=== PATIENT | male | born 1985 | race African-American/Black ===

== ENCOUNTER 2020-05-28 12:47 | Inpatient (IN) | payer MEDICAID, OTHER ==
[~2020-05-28] VITALS: Ht 182.9 cm; Wt 90.2 kg
[2020-05-28 13:59] LABS: BASOPHILS % (AUTO) 1 % (0-1); EOSINOPHILS % (AUTO) 0 % (1-7); LYMPHOCYTES % (AUTO) 5 % (22-44); MEAN CORPUSCULAR HEMOGLOBIN 26.2 pg (27.5-34.5); MEAN CORPUSCULAR HGB CONC 31.8 g/dL (33.2-36.2); MEAN PLATELET VOLUME 8.1 fL (7.4-10.4); MONOCYTES % (AUTO) 7 % (2-9); NEUTROPHILS % (AUTO) 87 % (42-75); PLATELET COUNT 579 x10^3/uL (130-400); RED BLOOD COUNT 6.69 x10^6/uL (4.38-5.82); RED CELL DISTRIBUTION WIDTH 12.7 % (9.4-14.8)
[2020-05-28 14:01] LABS: MD NO
[2020-05-28] MEDS ORDERED: SODIUM CHLORIDE 0.9% 1,000ML IVBOLUS ONE ×3 (14:30→16:00)
[2020-05-28] MEDS ORDERED: SODIUM CHLORIDE FLUSH 10ML SYR IVF ONE (14:30)
--- NOTE | 2020-05-28 14:36 | NUR ---
BREAK RN NOTE: REPORT TAKEN FROM PAULO DANG FOR MEAL BREAK, LAB PAGED REGARDING PENDING CMP.
--- NOTE | 2020-05-28 14:38 | NUR ---
RELATIONSHIP MANAGER STATES CMP IS RUNNING NOW AND TECH WILL BE SENT TO DRAW VENOUS BLOOD GAS.
--- NOTE | 2020-05-28 14:50 | NUR ---
MICAELA RICARDO AT BEDSIDE. FSBS TAKEN 446, EDMD RICARDO NOTIFIED. NS INFUSING RAPIDLY. PT IS DROWSY, RESPS EVEN AND UNLABORED, SINUS TACH ON MONITOR RATE 100'S WITH NO ECTOPY NOTED. ALL MONITORS IN PLACE. CALL LIGHT IN REACH. AWAITING LABS AND DISPO.
[2020-05-28 14:57] LABS: ALANINE AMINOTRANSFERASE 22 U/L (12-78); ALBUMIN 4.1 g/dL (3.4-5.0); ANION GAP 22 mmol/L (5-15); CALCIUM 9.9 mg/dL (8.5-10.1); CHLORIDE 92 mmol/L (98-107); CREATININE 2.19 mg/dL (0.7-1.3)
[2020-05-28 15:00] LABS: ACETONE, SERUM Large (80mg/dL) (Negative)
[2020-05-28 15:01] LABS: ALKALINE PHOSPHATASE 193 U/L (45-117); BILIRUBIN,TOTAL 0.5 mg/dL (0.2-1.0); TOTAL PROTEIN 9.5 g/dL (6.4-8.2); TROPONIN I < 0.015 ng/mL (0.000-0.045)
[2020-05-28 15:15] LABS: FIO2 ROOM AIR %
--- NOTE | 2020-05-28 15:16 | NUR ---
BREAK RN NOTE: REPORT GIVEN BACK TO PRIMARY RN ALTON.
[2020-05-28] MEDS ORDERED: INSULIN REGULAR 100 UNITS/ML, 3ML VIAL IVPush ONE (15:30)
[2020-05-28] MEDS ORDERED: PLEASE ENTER ALLERGIES MC SCH (15:30)
[2020-05-28] MEDS ORDERED: CALCIUM GLUCONATE 4.6 MEQ/10 ML IVPush ONE (15:30)
[2020-05-28] MEDS ORDERED: INSULIN LISPRO SINGLE DOSE, ER SQ-INSULIN ONE (15:45)
[2020-05-28] MEDS ORDERED: CALCIUM GLUCONATE 4.6 MEQ/10 ML ONE (15:45)
[2020-05-28] MEDS ORDERED: ONDANSETRON 2MG/ML, 2ML IV PRN (16:00)
[2020-05-28] MEDS ORDERED: DOCUSATE 100 MG CAPSULE PO PRN (16:00)
[2020-05-28] MEDS ORDERED: BISACODYL 10 MG SUPP PR PRN (16:00)
[2020-05-28] MEDS ORDERED: CALCIUM GLUCONATE 4.6 MEQ in SODIUM CHLORIDE 0.9% 100 ML IV ONE (16:00)
[2020-05-28] MEDS ORDERED: REGULAR INSULIN 100 UNITS in SODIUM CHLORIDE 0.9% 99 ML IV PRN (16:00)
[2020-05-28] MEDS ORDERED: POLYETHYLENE GLYCOL 17 GM PACKET PO PRN (16:00)
--- NOTE | 2020-05-28 17:16 | NUR ---
Pt disposition improving, pt more arousable. Fluids, calcium gtt infusing. Insulin given. UA sent. VS updated.
[2020-05-28 17:21] LABS: MICROSCOPIC AUTO
[2020-05-28] MEDS: D5%-0.45NACL+KCL 20MEQ 1,000 ML IV SCH (17:26)
[2020-05-28 17:30] LABS: AMPHETAMINE SCREEN, URINE Negative (Negative); BARBITURATE SCREEN, URINE Negative (Negative); BENZODIAZEPINE SCREEN, URINE Negative (Negative); CANNABINOID SCREEN, URINE Negative (Negative); COCAINE SCREEN, URINE Negative (Negative); METHADONE SCREEN, URINE Negative (Negative); OPIATE SCREEN, URINE Negative (Negative)
--- NOTE | 2020-05-28 17:49 | NUR ---
BG 348
--- NOTE | 2020-05-28 18:10 | NUR ---
Insulin gtt started, dual RN signoff
[2020-05-28] MEDS ORDERED: ONDANSETRON 2MG/ML, 2ML ONE (19:05)
--- NOTE | 2020-05-28 19:10 | NUR ---
Handoff report to Brianna BATES
--- NOTE | 2020-05-28 19:11 | NUR ---
first contact with pt, pt moaning in pain, n/v appears coffee ground. VSS. zavaleta requested from erp. will page hospitalist.
--- NOTE | 2020-05-28 19:19 | NUR ---
Call out to dr plummer to inform of new status of n/v emesis coffee ground appearing with abd pain. Also spoke with NEHAL Bauman. Ordered stat h/h. Will continue to monitor.
[2020-05-28] MEDS ORDERED: ONDANSETRON 2MG/ML, 2ML IVPush ONE (19:30)
--- NOTE | 2020-05-28 19:38 | NUR ---
STAT H/H DRAWN BY LAB. PT APPEARS MORE COMFORTABLE AFTER ZOFRAN. VSS HR STILL TACHY AT 110 NO ECTOPY. IVF INFUSING. RR 16. AWAITING FURTHER ORDERS FROM HOSPITALIST.
[2020-05-28 19:51] LABS: ANION GAP 14 mmol/L (5-15); CHLORIDE 105 mmol/L (98-107); CREATININE 1.64 mg/dL (0.7-1.3)
--- NOTE | 2020-05-28 19:55 | NUR ---
GLUCOSE 356; INSULIN CHECKED RUNNING 3UNITS/HR.
[2020-05-28] MEDS: ENOXAPARIN 40 MG/0.4 ML SQ SCH (20:52)
--- NOTE | 2020-05-28 20:54 | NUR ---
HELD LOVENOX 2ND TO PT VOMITING BLOOD IN ER.
--- NOTE | 2020-05-28 21:11 | NUR ---
URINALS EMPTIED 3100ML CLEAR YELLOW URINE. PT C/O ABDOMINAL PAIN NO MORE N/V. WILL MEDICATE PER PRN ORDER. VSS. INSULIN DRIP REMAINS AT 3U/HR PER PROTOCOL.
[2020-05-28] MEDS ORDERED: OXYcodone IR 5MG TABLET ONE (21:23)
[2020-05-28] MEDS: OXYcodone IR 5MG TABLET PO PRN (21:24)
--- NOTE | 2020-05-28 21:36 | NUR ---
PT APPEARS MORE COMFORTABLE POST PO PAIN MEDS. REMAINS SINUS TACH NO ECTOPY, RR 16. INSULIN REMAINS AT 3UNITS/HR WILL CONTINUE TO MONITOR.
[2020-05-28] MEDS: SODIUM CHLORIDE 0.9% 1,000 ML IV SCH (23:06)
--- NOTE | 2020-05-28 23:16 | NUR ---
REPEAT CHEM PANEL DUE, LAB CALLED TO CONFIRM WILL COME TO DRAW BY MIDNIGHT.
[2020-05-29 00:33] LABS: ANION GAP 8 mmol/L (5-15); CALCIUM 8.5 mg/dL (8.5-10.1); CHLORIDE 107 mmol/L (98-107); CREATININE 1.47 mg/dL (0.7-1.3)
--- NOTE | 2020-05-29 01:19 | NUR ---
lunch rn: fsbs done at bs. pt insulin adjusted per protocol in sep. pt attached to all vs and cardiac monitors with stable vs at this time. medication verified with rn altagracia smalls. pt has security incident handler at for monitoring.
[2020-05-29] MEDS: D5%-0.45NACL+KCL 20MEQ 1,000 ML IV SCH (03:52)
[2020-05-29] MEDS: SODIUM CHLORIDE 0.9% 1,000 ML IV SCH ×3 (03:52→22:48)
--- NOTE | 2020-05-29 03:54 | NUR ---
BG NOW 182, PER PROTOCOL DECREASED TO 1U/HR. STARTED THE D5 .45 WITH KCL INFUSION. VSS.
--- NOTE | 2020-05-29 04:13 | NUR ---
o2 sat DROPPING, 87%, PT STIMULATED AIRWAY OPEN REMAINS 88-90, PLACED ON 2-4L UP TO 90%. NRB UP TO 100%. 0415; TITRATED O2 BACK DOWN TO 4L NC, STAYS OF 100%
--- NOTE | 2020-05-29 04:30 | NUR ---
LAB HERE TO DRAW, CHEM7 PANEL. PT MAINTAINING O2 SATS 98% 4L NC.
--- NOTE | 2020-05-29 04:58 | NUR ---
1800ml CLEAR YELLOW URINE. CHEM PANEL DRAWN BY LAB. GASTROCULT TO PREVIOUS EMESIS POS FOR BLOOD.
--- NOTE | 2020-05-29 05:15 | NUR ---
BG 144, MAINTAINED AT RATE.
[2020-05-29 05:30] LABS: ANION GAP 8 mmol/L (5-15); CALCIUM 8.6 mg/dL (8.5-10.1); CHLORIDE 109 mmol/L (98-107)
--- NOTE | 2020-05-29 06:34 | NUR ---
CHANGE OF AIR DISPATCHER SHIFT. PT REMAINS SLEEPING, WILL WAKE UP WITH PAINFUL STIMULI. VSS. BGF 127 REMAINS SAME RATE INSULIN 5U/HR.
--- NOTE | 2020-05-29 07:09 | NUR ---
REPROT TO PAULO HAMM
--- NOTE | 2020-05-29 07:36 | NUR ---
PT ASLEEP AWAKES TO VOICE BLOOD SUGAR HOLDING
[2020-05-29] MEDS: INSULIN LISPRO 100 UNITS/ML, PEN SQ-INSULIN SCH ×4 (08:10→22:48)
--- NOTE | 2020-05-29 08:22 | NUR ---
insulin ordered drip order d/c stopped infusions, will treat with sliding scale as ordered
[2020-05-29 08:41] LABS: ANION GAP 6 mmol/L (5-15); CALCIUM 8.7 mg/dL (8.5-10.1); CHLORIDE 110 mmol/L (98-107); CREATININE 1.37 mg/dL (0.7-1.3)
--- NOTE | 2020-05-29 09:00 | NUR ---
REPORT TAKEN FROM PAULO HAMM AT BEDSIDE, THIS RN ASSUMING CARE. PT IS DROWSY, AWAKENS TO VOICE. RESPS EVEN AND UNLABORED. PT HAS NO COMPLAINT AT THIS TIME, PT EATING BREAKFAST MEAL TRAY WITHOUT DIFFICULTY.
[2020-05-29] MEDS: INSULIN GLARGINE 100 UNITS/ML, PEN SQ-INSULIN SCH ×2 (09:48→22:47)
--- NOTE | 2020-05-29 10:00 | NUR ---
LEVEL OF CARE CHANGED TO MED SURG, THROUGHPUT RN NOTIFIED.
--- NOTE | 2020-05-29 12:57 | NUR ---
LUNCH ARRIVED, FSBS 351 TAKEN AT THIS TIME.
[2020-05-29] MEDS ORDERED: 70/30 INSULIN SQ (12:58)
--- NOTE | 2020-05-29 13:30 | NUR ---
PT HAS NO INSULIN PEN, REQUESTED FROM PHARMACY.
--- NOTE | 2020-05-29 13:39 | NUR ---
PHARMACIST CALLED TO SEND INSULIN PEN FRANKLIN.
--- NOTE | 2020-05-29 13:40 | NUR ---
PT DROWSY, BUT AWAKENS TO VOICE. ORIENTED X 4. NEURO INTACT. PT C/O MODERATE GENERALIZED ABD PAIN THAT HAS BEEN INTERMITTENT SINCE PRIOR TO ADMIT. NO N/V AT THIS TIME. NSR ON ROTARY DERRICK OPERATOR WITH NO ECTOPY NOTED. CALL LIGHT IN REACH. GUARD AT BEDSIDE.
--- NOTE | 2020-05-29 13:56 | NUR ---
pt sleeping on hosptial bed, resps even and unlabored. nsr on systems support officer with no ectopy. rene at bedside. pt medicated with 12U humulin insulin per sliding scale with repeat bg 347. nadn at this time.
[2020-05-29] MEDS: ACETAMINOPHEN 325 MG TABLET PO PRN ×2 (14:58→23:13)
--- NOTE | 2020-05-29 15:00 | NUR ---
1200ML EMPTIED FROM URINALS
--- NOTE | 2020-05-29 15:16 | NUR ---
report given at bedside to PAULO Foley and PAULO Rodrigues who are assuming care. pt is drowsy, awakens to voice. all monitors in place. nsr on school lunch monitor with no ectopy noted. pt c/o generalized abd pain, medicated per emar with tylenol. pt tolerated well with no s/sx aspiration. poc reviewed at bedside. rene at bedside.
[2020-05-29] MEDS: ENOXAPARIN 40 MG/0.4 ML SQ SCH (15:31)
--- NOTE | 2020-05-29 15:32 | NUR ---
HELD LOVENOX INJECTION FOR PREVIOUS COFFEE GROUND EMESIS AND CONTINUED ABD PAIN.
--- NOTE | 2020-05-29 15:53 | NUR ---
PT RESTING IN GURNEY WITH EYES CLOSED, NO NEEDS AT THIS TIME.
--- NOTE | 2020-05-29 16:54 | NUR ---
PT RESTING IN GURNEY WITH EYES CLOSED.
--- NOTE | 2020-05-29 18:12 | NUR ---
PT RESTING IN [facility], NO COMPLAINTS AT THIS TIME.
--- NOTE | 2020-05-29 19:42 | NUR ---
MEAL TRAY PROVIDED, PT REPORTS NO OTHER NEEDS AT THIS TIME.
[2020-05-29] MEDS ORDERED: OXYcodone IR 5MG TABLET ONE (19:59)
[2020-05-29] MEDS: OXYcodone IR 5MG TABLET PO PRN (20:01)
[2020-05-29 21:46] VITALS: BP 96/66
[2020-05-30 02:52] VITALS: BP 107/65
[2020-05-30 05:35] LABS: BASOPHILS % (AUTO) 1 % (0-1); EOSINOPHILS % (AUTO) 1 % (1-7); LYMPHOCYTES % (AUTO) 21 % (22-44); MEAN CORPUSCULAR HEMOGLOBIN 26.8 pg (27.5-34.5); MEAN CORPUSCULAR HGB CONC 33.5 g/dL (33.2-36.2); MEAN PLATELET VOLUME 7.3 fL (7.4-10.4); MONOCYTES % (AUTO) 15 % (2-9); NEUTROPHILS % (AUTO) 63 % (42-75); PLATELET COUNT 377 x10^3/uL (130-400); RED BLOOD COUNT 5.25 x10^6/uL (4.38-5.82); RED CELL DISTRIBUTION WIDTH 12.8 % (9.4-14.8)
[2020-05-30 05:47] LABS: CHLORIDE 106 mmol/L (98-107)
[2020-05-30 05:52] LABS: MD NO
[2020-05-30 05:57] LABS: ALANINE AMINOTRANSFERASE 16 U/L (12-78); ALBUMIN 2.8 g/dL (3.4-5.0); ALKALINE PHOSPHATASE 112 U/L (45-117); ANION GAP 7 mmol/L (5-15); BILIRUBIN,TOTAL 0.9 mg/dL (0.2-1.0); CALCIUM 8.3 mg/dL (8.5-10.1); CREATININE 1.07 mg/dL (0.7-1.3); TOTAL PROTEIN 6.3 g/dL (6.4-8.2)
[2020-05-30] MEDS: INSULIN LISPRO 100 UNITS/ML, PEN SQ-INSULIN SCH ×4 (08:13→21:32)
[2020-05-30] MEDS: INSULIN GLARGINE 100 UNITS/ML, PEN SQ-INSULIN SCH ×2 (08:13→21:32)
[2020-05-30 08:17] VITALS: BP 123/80
[2020-05-30] MEDS: SODIUM CHLORIDE 0.9% 1,000 ML IV SCH ×2 (09:38→19:16)
[2020-05-30] MEDS: OMEPRAZOLE 20 MG CAPSULE.DR PO SCH (11:30)
[2020-05-30 13:35] VITALS: BP 132/68
[2020-05-30] MEDS: ENOXAPARIN 40 MG/0.4 ML SQ SCH (17:22)
[2020-05-30 19:12] VITALS: BP 132/76
[2020-05-31 00:50] VITALS: BP 122/77
[2020-05-31] MEDS: SODIUM CHLORIDE 0.9% 1,000 ML IV SCH ×2 (05:22→14:52)
[2020-05-31 06:04] LABS: BASOPHILS % (AUTO) 1 % (0-1); EOSINOPHILS % (AUTO) 2 % (1-7); LYMPHOCYTES % (AUTO) 37 % (22-44); MEAN CORPUSCULAR HEMOGLOBIN 26.3 pg (27.5-34.5); MEAN CORPUSCULAR HGB CONC 33.5 g/dL (33.2-36.2); MEAN PLATELET VOLUME 7.3 fL (7.4-10.4); MONOCYTES % (AUTO) 18 % (2-9); NEUTROPHILS % (AUTO) 43 % (42-75); PLATELET COUNT 333 x10^3/uL (130-400); RED BLOOD COUNT 4.94 x10^6/uL (4.38-5.82); RED CELL DISTRIBUTION WIDTH 12.3 % (9.4-14.8)
[2020-05-31] MEDS: OMEPRAZOLE 20 MG CAPSULE.DR PO SCH (06:27)
[2020-05-31 06:35] LABS: CHLORIDE 106 mmol/L (98-107); MD NO
[2020-05-31 06:45] LABS: ALANINE AMINOTRANSFERASE 15 U/L (12-78); ALBUMIN 2.6 g/dL (3.4-5.0); ALKALINE PHOSPHATASE 106 U/L (45-117); ANION GAP 6 mmol/L (5-15); BILIRUBIN,TOTAL 0.8 mg/dL (0.2-1.0); CALCIUM 8.5 mg/dL (8.5-10.1); CREATININE 0.88 mg/dL (0.7-1.3); TOTAL PROTEIN 5.6 g/dL (6.4-8.2)
[2020-05-31 07:22] VITALS: BP 126/80
[2020-05-31] MEDS ORDERED: POTASSIUM CHLORIDE 20 MEQ TAB.ER.PRT PO ONE (07:30)
[2020-05-31] MEDS: INSULIN LISPRO 100 UNITS/ML, PEN SQ-INSULIN SCH ×4 (07:44→22:15)
[2020-05-31] MEDS: INSULIN GLARGINE 100 UNITS/ML, PEN SQ-INSULIN SCH ×2 (07:44→22:14)
[2020-05-31 13:14] VITALS: BP 123/68
[2020-05-31] MEDS: ENOXAPARIN 40 MG/0.4 ML SQ SCH (17:26)
[2020-05-31 19:25] VITALS: BP 120/69
[2020-06-01 00:58] VITALS: BP 121/84
[2020-06-01] MEDS: SODIUM CHLORIDE 0.9% 1,000 ML IV SCH (03:38)
[2020-06-01] MEDS: OMEPRAZOLE 20 MG CAPSULE.DR PO SCH (06:36)
[2020-06-01 08:41] VITALS: BP 115/69
[2020-06-01] MEDS: INSULIN LISPRO 100 UNITS/ML, PEN SQ-INSULIN SCH ×2 (08:45→11:07)
[2020-06-01] MEDS: INSULIN GLARGINE 100 UNITS/ML, PEN SQ-INSULIN SCH (08:46)
[2020-06-01] MEDS ORDERED: INSU100I13 SQ-INSULIN (12:16)
[2020-06-01] MEDS ORDERED: INSU100I11 SQ-INSULIN (12:16)
[2020-06-01 13:45] VITALS: BP 100/65
== END 2020-06-01 15:49 | disposition home or self-care (01) | DRG 637 ==
LOC: ED 15:27 → EDIP 15:28 → ED 15:38 → 3N 05-29 21:33
PROVIDERS: ADMIT Internal Medicine; ATTEND Hospitalist
DX: E10.10 Type 1 diabetes mellitus with ketoacidosis without coma (principal); G93.41 Metabolic encephalopathy; N17.0 Acute kidney failure with tubular necrosis; E87.1 Hypo-osmolality and hyponatremia; R65.10 Systemic inflammatory response syndrome (SIRS) of non-infectious origin without acute organ dysfunction; E86.1 Hypovolemia; E87.5 Hyperkalemia; F15.90 Other stimulant use, unspecified, uncomplicated; F17.200 Nicotine dependence, unspecified, uncomplicated
CPT/HCPCS: 36415; 71045; 76700; 80048; 80053; 80307; 81001; 82010; 82803; 82962; 83036; 83690; 83735; 84100; 84443; 84484; 85014; 85018; 85025; 87040; 93005; 96374; 96375; 99291; G0378; J0610; J1650; J2405; J1815; J3480; J7030